=== PATIENT | male | born 2000 | race Caucasian/White ===

== ENCOUNTER 2019-04-14 08:08 | Outpatient (CLI) | payer OTHER ==
[~2019-04-14] VITALS: Ht 185.4 cm; Wt 72.1 kg
[2019-04-14] MEDS ORDERED: ZESTRIL 10MG10 MG PO (08:57)
[2019-04-14 09:03] VITALS: BP 116/83; PULSE 65; TEMP 97.6
--- NOTE | 2019-04-14 10:28 | NUR ---
Pt to procedure,report to KEREN Gaines.
[2019-04-14 11:36] VITALS: BP 121/85; PULSE 59
--- NOTE | 2019-04-14 11:40 | NUR ---
DISCHARGE INSTRUCTIONS GIVEN TO PT.PT VERBALIZES UNDERSTANDING.INT REMOVED,CATHETER TIP INTACT.
== END 2019-04-14 13:38 | disposition home or self-care (01) ==
LOC: COL.CAR 08:08
DX: R55 Syncope and collapse (principal); I10 Essential (primary) hypertension; Z88.0 Allergy status to penicillin; Z87.891 Personal history of nicotine dependence; Z82.49 Family history of ischemic heart disease and other diseases of the circulatory system